=== PATIENT | female | born 1960 | race Caucasian/White ===

== ENCOUNTER → 2017-02-07 | Outpatient (CLI) | payer OTHER | END | disposition home or self-care (01) | LOC: CFH 13:18 | PROVIDERS: ATTEND Specialist | DX: Z12.31 Encounter for screening mammogram for malignant neoplasm of breast (principal) | CPT/HCPCS: G0202 ==

== ENCOUNTER 2018-03-30 19:03 | Observation (INO) | payer BC, OTHER ==
[~2018-03-30] VITALS: Ht 167.6 cm; Wt 111.5 kg
--- NOTE | 2018-03-30 19:15 | NUR ---
C/O LEFT ARM / SHOULDER AND CHEST PAIN X 1 HR. + SOB. DESCRIBED THERE IS AN ELEPHANT SITTING ON HER CHEST. PER TRIAGE NOTE PT WAS ON W/C TO RM BY STAFF FAMILY FOLLOWED
[2018-03-30] MEDS ORDERED: BENA5TAB3 PO (19:26)
[2018-03-30] MEDS ORDERED: LEVO175T2 PO (19:26)
[2018-03-30] MEDS ORDERED: ATOR10TA9 PO (19:27)
--- NOTE | 2018-03-30 19:27 | NUR ---
PT STATED PT TOOK FULL DOSE TOOK 3 HRS AGO
[2018-03-30 19:54] LABS: BASOPHILS # (AUTO) 0.03 x10^3/uL (0-0.1); BASOPHILS % (AUTO) 1 % (0-1); EOSINOPHILS # (AUTO) 0.25 x10^3/uL (0-0.4); EOSINOPHILS % (AUTO) 4 % (1-7); LYMPHOCYTES # (AUTO) 2.39 x10^3/uL (1-3.4); LYMPHOCYTES % (AUTO) 35 % (22-44); MD NO; MEAN CORPUSCULAR HEMOGLOBIN 31.7 pg (27.0-34.8); MEAN CORPUSCULAR HGB CONC 33.8 g/dL (32.4-35.8); MEAN CORPUSCULAR VOLUME 93.7 fL (80-100); MEAN PLATELET VOLUME 8.9 fL (7.4-10.4); MONOCYTES % (AUTO) 10 % (2-9); NEUTROPHILS # (AUTO) 3.41 x10^3/uL (1.8-6.8); NEUTROPHILS % (AUTO) 50 % (42-75); PLATELET COUNT 256 x10^3/uL (130-400); RED BLOOD COUNT 4.26 x10^6/uL (3.82-5.3); RED CELL DISTRIBUTION WIDTH 13.3 % (9.6-15.2)
[2018-03-30 20:05] LABS: ALBUMIN 3.4 g/dL (3.4-5.0); ANION GAP 6 mmol/L (5-15); CALCIUM 8.6 mg/dL (8.5-10.1); CHLORIDE 112 mmol/L (98-107); CREATININE 0.85 mg/dL (0.55-1.02)
[2018-03-30 20:08] LABS: TROPONIN I < 0.015 ng/mL (0.000-0.045)
[2018-03-30 20:09] LABS: D-DIMER 0.26 ug/mlFEU (0.00-0.52); INTERNATIONAL NORMALIZED RATIO 0.96 (0.93-1.1); PROTHROMBIN TIME 10.2 Seconds (9.6-11.5)
--- NOTE | 2018-03-30 21:21 | NUR ---
PT UP AMBULATED TO BATHROOM WITH STABLE GAIT FOLLOWED GIVEN REPORT TO RN PT IS READY TO BE TRANSFERRED
[2018-03-30] MEDS ORDERED: ACETAMINOPHEN 325 MG TABLET PO PRN (21:30)
[2018-03-30] MEDS ORDERED: NITROGLYCERIN 0.4 MG BOTTLE (25 TABS) SL PRN (21:30)
[2018-03-30] MEDS ORDERED: ONDANSETRON 2MG/ML, 2ML IVPush PRN (21:30)
[2018-03-30] MEDS ORDERED: POLYETHYLENE GLYCOL 17 GM PACKET PO PRN (21:30)
[2018-03-30] MEDS ORDERED: hydrALAzine 20 MG/ML, 1ML IVPush PRN (21:30)
[2018-03-30] MEDS ORDERED: DOCUSATE 100 MG CAPSULE PO PRN (21:30)
[2018-03-30] MEDS ORDERED: PROMETHAZINE 25 MG/ML, 1ML IM PRN (21:30)
[2018-03-30] MEDS ORDERED: ONDANSETRON ODT 4 MG PO PRN (21:30)
[2018-03-30] MEDS ORDERED: OXYcodone IR 5MG TABLET PO PRN (21:30)
[2018-03-30] MEDS ORDERED: LABETALOL 5MG/ML, 20ML IVPush PRN (21:30)
[2018-03-30] MEDS ORDERED: BISACODYL 10 MG SUPP PR PRN (21:30)
[2018-03-30] MEDS ORDERED: morphine SULFATE 10 MG/ML, 1ML IVPush PRN (21:30)
[2018-03-30] MEDS ORDERED: POTASSIUM CHLORIDE 40 MEQ in SODIUM CHLORIDE 0.9% 500 ML IV ONE (22:00)
[2018-03-30 22:09] LABS: FREE T4 (FREE THYROXINE) 1.13 ng/dL (0.76-1.46); HEMOGLOBIN A1C 5.4 % (4.2-6.3); THYROID STIMULATING HORMONE 1.05 mIU/L (0.358-3.740)
[2018-03-30] MEDS ORDERED: BENAZEPRIL 5 MG TABLET PO SCH (22:30)
[2018-03-30] MEDS ORDERED: ATORVASTATIN 20 MG TABLET PO SCH (22:30)
[2018-03-30] MEDS: SODIUM CHLORIDE 0.9% 1,000 ML IV SCH (22:43)
[2018-03-30] MEDS: HEPARIN 5,000 UNITS/ML, 1ML SQ SCH (22:43)
[2018-03-30 22:54] VITALS: BP 103/69
[2018-03-31 00:01] LABS: TROPONIN I < 0.015 ng/mL (0.000-0.045)
[2018-03-31 02:17] VITALS: BP 114/75
[2018-03-31] MEDS: HEPARIN 5,000 UNITS/ML, 1ML SQ SCH ×2 (05:24→13:30)
[2018-03-31] MEDS ORDERED: LEVOTHYROXINE 175 MCG TABLET PO SCH (06:00)
[2018-03-31] MEDS ORDERED: ASPIRIN 325 MG TABLET EC PO SCH (06:00)
[2018-03-31 06:01] LABS: BASOPHILS # (AUTO) 0.07 x10^3/uL (0-0.1); BASOPHILS % (AUTO) 1 % (0-1); EOSINOPHILS # (AUTO) 0.22 x10^3/uL (0-0.4); EOSINOPHILS % (AUTO) 3 % (1-7); LYMPHOCYTES # (AUTO) 2.61 x10^3/uL (1-3.4); LYMPHOCYTES % (AUTO) 38 % (22-44); MD NO; MEAN CORPUSCULAR HEMOGLOBIN 31.7 pg (27.0-34.8); MEAN CORPUSCULAR HGB CONC 33.6 g/dL (32.4-35.8); MEAN CORPUSCULAR VOLUME 94.5 fL (80-100); MEAN PLATELET VOLUME 9.3 fL (7.4-10.4); MONOCYTES # (AUTO) 0.71 x10^3/uL (0.2-0.8); MONOCYTES % (AUTO) 10 % (2-9); NEUTROPHILS # (AUTO) 3.35 x10^3/uL (1.8-6.8); NEUTROPHILS % (AUTO) 48 % (42-75); PLATELET COUNT 223 x10^3/uL (130-400); RED BLOOD COUNT 3.95 x10^6/uL (3.82-5.3); RED CELL DISTRIBUTION WIDTH 13.6 % (9.6-15.2)
[2018-03-31 06:51] LABS: CHLORIDE 114 mmol/L (98-107)
[2018-03-31 07:00] LABS: ALANINE AMINOTRANSFERASE 18 U/L (12-78); ALBUMIN 3.1 g/dL (3.4-5.0); ALKALINE PHOSPHATASE 94 U/L (45-117); ANION GAP 6 mmol/L (5-15); BILIRUBIN,TOTAL 0.2 mg/dL (0.2-1.0); CALCIUM 8.8 mg/dL (8.5-10.1); CHOL/HDL RATIO 3.3; CHOLESTEROL, TOTAL 129 mg/dL (140-239); CREATININE 0.72 mg/dL (0.55-1.02); HDL CHOL % 30 % (28-40); HDL CHOLESTEROL (DIRECT) 39 mg/dL (40-60); LDL CHOLESTEROL,CALCULATED 61 mg/dL (54-169); LDL/HDL RATIO 1.6 (0.5-3.0); TOTAL PROTEIN 6.1 g/dL (6.4-8.2); TRIGLYCERIDES 147 mg/dL (50-200); TROPONIN I < 0.015 ng/mL (0.000-0.045); VLDL CHOLESTEROL 29 mg/dL (0-25)
[2018-03-31 07:23] VITALS: BP 113/74
[2018-03-31] MEDS ORDERED: BENAZEPRIL 5 MG TABLET PO SCH (09:00)
[2018-03-31] MEDS ORDERED: REGADENOSON 0.4 MG/5 ML SYRINGE ONE (09:28)
[2018-03-31] MEDS: SODIUM CHLORIDE 0.9% 1,000 ML IV SCH (11:00)
[2018-03-31] MEDS ORDERED: ACET325T14 PO (13:07)
[2018-03-31 15:32] VITALS: BP 112/77
[2018-03-31] MEDS ORDERED: ATORVASTATIN 20 MG TABLET PO SCH (21:00)
== END 2018-03-31 16:37 | disposition home or self-care (01) ==
LOC: ED 20:00 → INTOOBSV 20:39 → UNDOADMOB 20:39 → EDIP 20:39 → 4WST 21:57 → EDIP 21:57 → 4WST 22:19 → EDIP 22:19 → DCLOUNGE 03-31 16:35 → 4WST 03-31 16:35 → UNDODISOB 03-31 16:37
PROVIDERS: ADMIT Internal Medicine; ATTEND Internal Medicine
DX: R07.89 Other chest pain (principal); I10 Essential (primary) hypertension; E03.9 Hypothyroidism, unspecified; E78.5 Hyperlipidemia, unspecified; E87.6 Hypokalemia; E78.00 Pure hypercholesterolemia, unspecified; K21.9 Gastro-esophageal reflux disease without esophagitis; Z82.3 Family history of stroke; Z82.49 Family history of ischemic heart disease and other diseases of the circulatory system; Z79.899 Other long term (current) drug therapy
CPT/HCPCS: 36415; 71045; 78452; 80048; 80053; 80061; 82040; 83036; 83735; 84439; 84443; 84484; 85025; 85379; 85610; 85730; 93005; 93017; 96365; 96366; 96372; 99284; A9502; C9898; G0378; J1644; J2785; J3480; J7030; J7040; 99285

== ENCOUNTER 2019-02-06 14:07 | Outpatient (CLI) | payer BC ==
[~2019-02-06 14:07] MED LIST: ACET325T14 PO; ATOR10TA9 PO; BENA5TAB3 PO; LEVO175T2 PO
== END 2019-02-06 23:59 | disposition home or self-care (01) ==
LOC: CFH 14:07
PROVIDERS: ATTEND Nurse Practitioner Family
DX: Z12.31 Encounter for screening mammogram for malignant neoplasm of breast (principal); N64.89 Other specified disorders of breast; R10.2 Pelvic and perineal pain
CPT/HCPCS: 76830; 77063; 77067